=== PATIENT | female | born 1955 | race Caucasian/White ===

== ENCOUNTER → 2017-03-28 10:58 | Outpatient (CLI) | payer OTHER, SELFPAY | PROVIDERS: Family Provider Internal Medicine; PCP Internal Medicine | DX: R19.7 Diarrhea, unspecified (principal) | CPT/HCPCS: 87177; 87209; 87493; 87506 ==

== ENCOUNTER → 2017-07-03 10:09 | Outpatient (CLI) | payer OTHER, SELFPAY ==
[2017-07-03 12:10] LABS: Absolute Lymphocyte Count 1.77 X10^3/ul (0.83-4.51); Absolute Neutrophil Count 6.1 X10^3/uL (2.0-7.7); Basophil# 0.03 X10^3/uL; Basophil% 0.3 % (0-1); Differential Indicated SCAN CRITERIA MET; Eosinophil# 0.09 X10^3/uL; Hematocrit 34.8 % (37-47); Hemoglobin 9.6 g/dl (12.0-15.0); Lymphocyte # 1.77 X10^3/ul (4.0); Lymphocyte % 20.4 % (19-41); Mean Corp Hgb Conc 27.6 g/gl (32-36); Mean Corpuscular Hgb 19.1 pg (27.0-32.0); Mean Corpuscular Volume 69.2 fL (81-99); Mean Platelet Vol. 9.6 fl (6.2-12.0); Monocyte# 0.68 X10^3/uL; Monocyte% 7.8 % (0-10); Neutrophil # 6.08 X10^3/uL (2.7-7.7); Neutrophil % 70.2 % (47-70); POSITIVE COUNT NO; POSITIVE DIFFERENTIAL NO; POSITIVE MORPHOLOGY YES; Platelet Count 341 K/mm3 (150-450); RBC Distribution Width CV 19.5 % (11.6-14.6); RBC Distribution Width SD 48.2 fl (35.1-43.9); Red Blood Count 5.03 M/mm3 (4.2-5.4); White Blood Count 8.7 K/mm3 (4.4-11.0)
[2017-07-03 12:32] LABS: ALB/GLOB Ratio 0.8 RATIO (0.9-2.4); AST(SGOT) 17 U/L (15-37); Alanine Aminotransfer ALT/SGPT 14 U/L (13-56); Alkaline Phosphatase 111 U/L (45-117); Anion Gap 6 (5-15); BUN 12 mg/dL (7-18); BUN/Creat Ratio 19.5 RATIO (10-20); Calcium,Total 8.6 mg/dL (8.5-10.1); Chloride 104 mmol/L (98-107); Cholesterol 131 mg/dL (200); Creatinine, Serum 0.62 mg/dL (0.55-1.02); EST Glomerular Filtration Rate 104 mL/min (>60); Est Glom Filt Rate - Afr Amer 126 mL/min (>60); Ferritin 5 ng/mL (8-252); Glucose 83 mg/dL (74-106); High Density Lipoprotein 41 mg/dL; Iron 30 ug/dL (50-170); Potassium 3.8 mmol/L (3.5-5.1); Sodium Level 140 mmol/L (136-145); T4 Free Direct 1.03 ng/dL (0.76-1.46); Triglycerides 109 mg/dL; Very Low Density Lipoprotein 22 mg/dL (5-40)
[2017-07-03 12:54] LABS: Polychromasia 1+; Target Cells 1+
[2017-07-03 12:55] LABS: Hypochromasia RARE; Microcytosis 1+
[2017-07-04 08:41] LABS: Vitamin D,25 Hydroxy 11.1 ng/mL (29.95-100.01)
== END ==
PROVIDERS: Family Provider Family Medicine; PCP Family Medicine; Visit Provider Family Medicine
DX: E55.9 Vitamin D deficiency, unspecified (principal); D50.9 Iron deficiency anemia, unspecified; I10 Essential (primary) hypertension; F41.9 Anxiety disorder, unspecified
CPT/HCPCS: 36415; 80053; 80061; 82306; 82728; 83540; 84439; 84443; 85025

== ENCOUNTER → 2019-12-01 | Outpatient (CLI) | payer MEDICARE, SELFPAY ==
[2019-12-01 16:54] LABS: Absolute Lymphocyte Count 1.97 X10^3/uL (0.83-4.51); Basophil# 0.03 X10^3/uL; Basophil% 0.4 % (0-1); Eosinophil# 0.12 X10^3/uL; Eosinophils% 1.6 % (0-5); Hematocrit 36.9 % (37-47); Hemoglobin 9.7 g/dL (12.0-15.0); Lymphocyte # 1.97 X10^3/ul (4.0); Lymphocyte % 25.7 % (19-41); Mean Corp Hgb Conc 26.3 g/dL (32-36); Mean Corpuscular Hgb 18.9 pg (27.0-32.0); Mean Corpuscular Volume 71.9 fL (81-99); Mean Platelet Vol. 8.6 fl (6.2-12.0); Monocyte% 6.5 % (0-10); NRBC Flagged by Analyzer 0 % (0-5); Neutrophil # 5.02 X10^3/uL (2.7-7.7); Neutrophil % 65.3 % (47-70); Platelet Count 284 K/mm3 (150-450); RBC Distribution Width SD 46.1 fl (35.1-43.9); Red Blood Count 5.13 M/mm3 (4.2-5.4); White Blood Count 7.7 K/mm3 (4.4-11.0)
[2019-12-01 16:55] LABS: Vitamin B12 253 pg/mL (211-911); Vitamin D,25 Hydroxy 17.8 ng/mL
[2019-12-01 17:00] LABS: Albumin, Serum 3.2 g/dL (3.2-5.0); BUN 13 mg/dL (7-18); BUN/Creat Ratio 19.5 RATIO (10-20); Creatinine, Serum 0.66 mg/dL (0.55-1.02); EST Glomerular Filtration Rate 94 mL/min (>60); Est Glom Filt Rate - Afr Amer 114 mL/min (>60); Glucose 89 mg/dL (74-106); Protein, Total 7.2 g/dL (6.4-8.2)
[2019-12-01 17:01] LABS: ALB/GLOB Ratio 0.8 RATIO (0.9-2.4); AST(SGOT) 19 U/L (15-37); Alanine Aminotransfer ALT/SGPT 22 U/L (13-56); Alkaline Phosphatase 144 U/L (45-117); Anion Gap 2 (5-15); Calcium,Total 8.5 mg/dL (8.5-10.1); Chloride 106 mmol/L (98-107); Ferritin 5 ng/mL (8-252); Iron 29 ug/dL (50-170); Potassium 3.7 mmol/L (3.5-5.1); Sodium Level 141 mmol/L (136-145); Thyroid Stim Hormone (TSH) 2.16 uIU/mL (0.358-3.74)
== END | disposition home or self-care (01) ==
LOC: BFHLAB 15:23
PROVIDERS: PCP Family Medicine; Visit Provider Family Medicine
DX: E55.9 Vitamin D deficiency, unspecified (principal); D50.9 Iron deficiency anemia, unspecified; R60.9 Edema, unspecified
CPT/HCPCS: 36415; 80053; 82306; 82607; 82728; 83540; 84443; 85025

== ENCOUNTER → 2020-08-11 17:35 | Outpatient (CLI) | payer MEDICARE, SELFPAY | PROVIDERS: PCP Family Medicine; Visit Provider Family Medicine | DX: N39.0 Urinary tract infection, site not specified (principal) | CPT/HCPCS: 87077; 87086; 87088; 87186 ==

== ENCOUNTER → 2022-10-30 | Outpatient (CLI) | payer MEDICARE, SELFPAY ==
[2022-10-30 12:25] LABS: Absolute Neutrophil Count 4.4 X10^3/uL (2.0-7.7); Basophil# 0.04 X10^3/uL; Basophil% 0.6 % (0-1); Eosinophil# 0.17 X10^3/uL; Eosinophils% 2.4 % (0-5); Hematocrit 40.3 % (37-47); Hemoglobin 11.9 g/dL (12.0-15.0); Mean Corp Hgb Conc 29.5 g/dL (32-36); Mean Corpuscular Hgb 24.2 pg (27.0-32.0); Mean Corpuscular Volume 81.9 fL (81-99); Mean Platelet Vol. 9.2 fl (6.2-12.0); Monocyte# 0.53 X10^3/uL; Monocyte% 7.5 % (0-10); NRBC Flagged by Analyzer 0 % (0-5); Neutrophil # 4.37 X10^3/uL (2.7-7.7); Neutrophil % 62.1 % (47-70); Platelet Count 250 K/mm3 (150-450); RBC Distribution Width CV 14.4 % (11.6-14.6); RBC Distribution Width SD 42.7 fl (35.1-43.9); Red Blood Count 4.92 M/mm3 (4.2-5.4)
[2022-10-30 12:46] LABS: Vitamin B12 175 pg/mL (211-911); Vitamin D,25 Hydroxy 10.1 ng/mL
[2022-10-30 12:59] LABS: ALB/GLOB Ratio 0.8 RATIO (0.9-2.4); AST(SGOT) 26 U/L (15-37); Alanine Aminotransfer ALT/SGPT 25 U/L (13-56); Alkaline Phosphatase 142 U/L (45-117); Anion Gap 5 (5-15); BUN 17 mg/dL (7-18); Calcium,Total 8.6 mg/dL (8.5-10.1); Chloride 106 mmol/L (98-107); Cholesterol 168 mg/dL (200); Creatinine, Serum 0.68 mg/dL (0.55-1.02); EST Glomerular Filtration Rate 91 mL/min (>60); Est Glom Filt Rate - Afr Amer 110 mL/min (>60); Ferritin 8 ng/mL (8-252); Glucose 105 mg/dL (74-106); High Density Lipoprotein 47 mg/dL; Iron 42 ug/dL (50-170); Potassium 3.9 mmol/L (3.5-5.1); Sodium Level 140 mmol/L (136-145); Triglycerides 90 mg/dL; Very Low Density Lipoprotein 18 mg/dL (5-40)
== END | disposition home or self-care (01) ==
PROVIDERS: PCP Nurse Practitioner Family; Referring Provider Nurse Practitioner Family; Visit Provider Nurse Practitioner Family
DX: E55.9 Vitamin D deficiency, unspecified (principal); I10 Essential (primary) hypertension; D50.9 Iron deficiency anemia, unspecified; E53.8 Deficiency of other specified B group vitamins; E78.5 Hyperlipidemia, unspecified
CPT/HCPCS: 36415; 80053; 80061; 82306; 82607; 82728; 83540; 85025

== ENCOUNTER → 2022-11-13 | Outpatient (CLI) | payer MEDICARE, SELFPAY ==
--- NOTE | 2022-11-13 09:40 | BI_ITS ---
MAMMOGRAPHY - BILATERAL SCREENING REASON FOR EXAM: Female, 67 years old. Routine annual screening examination. PERTINENT HISTORY: Grandmother with breast cancer. Aunts with breast cancer. TECHNIQUE: Digital bilateral breast stephanie (3D mammographic acquisition) in the CC and MLO projections. 2-D mediolateral oblique (MLO) and craniocaudad (CC) views of both breasts were obtained. CAD: Full Field Digital Mammography with Computer Added Detection was performed. COMPARISON: Comparison is made with prior study dated February 06, 2012. FINDINGS: Breast Composition: There are scattered areas of fibroglandular density. There are no dominant masses or suspicious calcifications. Stable benign-appearing bilateral axillary lymph nodes. No other significant abnormalities are identified. There has been no significant change since the prior study. BI/SCRN MAMM (CAD)W/STEPHANIE BILAT IMPRESSION: Stable bilateral screening mammogram. Yearly follow-up mammogram recommended. (A) ASSESSMENT CATEGORY: BIRADS Category 2: Benign. A letter regarding these results will be sent to the patient by the facility within 30 days. Approximately 10% of breast cancers are not detected by mammography. A normal mammogram should not delay biopsy of a clinically suspicious abnormality. [id number] Electronically Signed: Tha Loya MD at 11:09 EDT ,
== END | disposition home or self-care (01) ==
LOC: OPBI 09:38
PROVIDERS: PCP Nurse Practitioner Family; Referring Provider Nurse Practitioner Family; Visit Provider Nurse Practitioner Family
DX: Z12.31 Encounter for screening mammogram for malignant neoplasm of breast (principal); Z80.3 Family history of malignant neoplasm of breast
CPT/HCPCS: 77063; 77067

== ENCOUNTER → 2023-11-04 | Outpatient (CLI) | payer MEDICARE, SELFPAY ==
[2023-11-04 15:28] LABS: Absolute Lymphocyte Count 1.69 X10^3/uL (0.83-4.51); Absolute Neutrophil Count 4.3 X10^3/uL (2.0-7.7); Basophil# 0.05 X10^3/uL; Basophil% 0.7 % (0-1); Eosinophil# 0.19 X10^3/uL; Eosinophils% 2.8 % (0-5); Hemoglobin 13.3 g/dL (12.0-15.0); Lymphocyte # 1.69 X10^3/ul (0.83-4.51); Lymphocyte % 25.1 % (19-41); Mean Corp Hgb Conc 30.9 g/dL (32-36); Mean Corpuscular Hgb 26.8 pg (27.0-32.0); Mean Corpuscular Volume 86.5 fL (81-99); Mean Platelet Vol. 10.1 fl (6.2-12.0); Monocyte# 0.46 X10^3/uL; Monocyte% 6.8 % (0-10); NRBC Flagged by Analyzer 0 % (0-5); Neutrophil % 64.2 % (47-70); Platelet Count 244 K/mm3 (150-450); RBC Distribution Width CV 13.4 % (11.6-14.6); RBC Distribution Width SD 41.8 fl (35.1-43.9); Red Blood Count 4.97 M/mm3 (4.2-5.4); White Blood Count 6.7 K/mm3 (4.4-11.0)
[2023-11-04 15:48] LABS: ALB/GLOB Ratio 0.9 RATIO (0.9-2.4); AST(SGOT) 22 U/L (15-37); Alanine Aminotransfer ALT/SGPT 22 U/L (13-56); Albumin, Serum 3.1 g/dL (3.2-5.0); Alkaline Phosphatase 106 U/L (45-117); Anion Gap 7 (5-15); BUN 14 mg/dL (7-18); BUN/Creat Ratio 22.1 RATIO (10-20); Calcium,Total 9.1 mg/dL (8.5-10.1); Chloride 108 mmol/L (98-107); Cholesterol 165 mg/dL (200); Creatinine, Serum 0.63 mg/dL (0.55-1.02); EST Glomerular Filtration Rate 99 mL/min (>60); Est Glom Filt Rate - Afr Amer 119 mL/min (>60); Ferritin 49 ng/mL (8-252); Globulin 3.5 g/dL (2.2-4.2); Glucose 99 mg/dL (74-106); High Density Lipoprotein 57 mg/dL; Iron 62 ug/dL (50-170); Protein, Total 6.6 g/dL (6.4-8.2); Sodium Level 143 mmol/L (136-145); Triglycerides 108 mg/dL; Very Low Density Lipoprotein 22 mg/dL (5-40)
[2023-11-04 15:50] LABS: Vitamin D,25 Hydroxy 30.5 ng/mL
== END | disposition home or self-care (01) ==
LOC: BFHLAB 11:04
PROVIDERS: PCP Nurse Practitioner Family; Referring Provider Nurse Practitioner Family; Visit Provider Nurse Practitioner Family
DX: E55.9 Vitamin D deficiency, unspecified (principal); D50.9 Iron deficiency anemia, unspecified; I10 Essential (primary) hypertension; E78.5 Hyperlipidemia, unspecified
CPT/HCPCS: 36415; 80053; 80061; 82306; 82728; 83540; 85025

== ENCOUNTER → 2023-11-25 | Outpatient (CLI) | payer MEDICARE, SELFPAY ==
--- NOTE | 2023-11-25 15:34 | BI_ITS ---
MAMMOGRAPHY - BILATERAL SCREENING REASON FOR EXAM: Female, 68 years old. Routine annual screening examination. PERTINENT HISTORY: Grandmother with breast cancer. Aunts with breast cancer. TECHNIQUE: Digital bilateral breast stephanie (3D mammographic acquisition) in the CC and MLO projections. 2-D mediolateral oblique (MLO) and craniocaudad (CC) views of both breasts were obtained. CAD: Full Field Digital Mammography with Computer Added Detection was performed. COMPARISON: Comparison is made with prior study November 13, 2022 and February 06, 2012. FINDINGS: Breast Composition: The breasts are almost entirely fatty. There are no dominant masses or suspicious calcifications. Stable small benign-appearing axillary lymph nodes. No other significant abnormalities are identified. There has been no significant change since the prior study. BI/SCRN MAMM (CAD)W/STEPHANIE BILAT IMPRESSION: Stable bilateral screening mammogram. Yearly follow-up mammogram recommended. (A) ASSESSMENT CATEGORY: BIRADS Category 2: Benign. A letter regarding these results will be sent to the patient by the facility within 30 days. Approximately 10% of breast cancers are not detected by mammography. A normal mammogram should not delay biopsy of a clinically suspicious abnormality. [id number] Electronically Signed: Tha Loya MD at 8:16 EDT ,
--- NOTE | 2023-11-25 15:36 | BD_ITS ---
STUDY: DUAL ENERGY X-RAY ABSORPTIOMETRY / DXA REASON FOR EXAM: Female, 68 years old. [id number] TECHNIQUE: Bone Mineral Density (BMD) measurements of lumbar spine and bilateral hips were obtained. COMPARISON: None. FINDINGS: Lumbar Spine (L1-L4): g/cm2 (1.4-3) / T-score (3.4) / Z-score (5.5) Findings are suggestive of normal bone density with a low fracture risk. Left Femur Total: g/cm2 (1.069) / T-score (1.0) / Z-score (2.6) Left Femoral Neck: g/cm2 (0.808) / T-score (-0.4) / Z-score (1.4) Right Femur Total: g/cm2 (0.962) / T-score (0.2) / Z-score (1.7) Right Femoral Neck: g/cm2 (0.747) / T-score (-0.9) / Z-score (0.9) BD/Dexa Bone Density Study IMPRESSION: The patient is considered normal as outlined below according to World Hung Organization (WHO) criteria with a low fracture risk. Reference Information: The T-score is the number of standard deviations above or below the standard which is normal for young adults at their peak bone mineral density. The World Health Organization (WHO) interprets the T-scores as follows: Above -1 Normal bone density Between -1 and -2.5 Osteopenia Equal to / or below -2.5 Osteoporosis As a practical clinical guideline, osteopenia may be graded as follows: Mild -1 through -1.5 Moderate -1.6 through -2.0 Severe -2.1 through -2.4 The Z-score is the number of standard deviations above or below age-matched controls. A Z-score of less than -1.5 would be considered abnormal. References: 1. NIH Osteoporosis and Related Bone Diseases www osteo.org 2. International Society for Clinical Densitometry www iscd.org 3. National Osteoporosis Foundation www nof.org Electronically Signed: Tha Loya MD at 14:30 EDT ,
== END | disposition home or self-care (01) ==
LOC: OPBD 15:32
PROVIDERS: PCP Nurse Practitioner Family; Referring Provider Nurse Practitioner Family; Visit Provider Nurse Practitioner Family
DX: Z12.31 Encounter for screening mammogram for malignant neoplasm of breast (principal); Z13.820 Encounter for screening for osteoporosis; Z80.3 Family history of malignant neoplasm of breast; Z78.0 Asymptomatic menopausal state
CPT/HCPCS: 77063; 77067; 77080

== ENCOUNTER → 2024-05-12 | Outpatient (CLI) | payer MEDICARE, SELFPAY | END | disposition home or self-care (01) | LOC: LABSPEC 16:12 | PROVIDERS: PCP Nurse Practitioner Family; Visit Provider Nurse Practitioner Family | DX: N39.0 Urinary tract infection, site not specified (principal) | CPT/HCPCS: 87086; 87088; 87186 ==

== ENCOUNTER → 2024-06-23 | Outpatient (CLI) | payer MEDICARE, SELFPAY | END | disposition home or self-care (01) | LOC: LABSPEC 12:25 | PROVIDERS: PCP Nurse Practitioner Family; Referring Provider Nurse Practitioner Family; Visit Provider Nurse Practitioner Family | DX: N39.0 Urinary tract infection, site not specified (principal) | CPT/HCPCS: 87086; 87088; 87186 ==

== ENCOUNTER → 2024-07-23 | Outpatient (CLI) | payer MEDICARE, SELFPAY ==
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
== END | disposition home or self-care (01) ==
LOC: MTRAD 16:25
PROVIDERS: PCP Nurse Practitioner Family; Referring Provider Nurse Practitioner Family; Visit Provider Nurse Practitioner Family
DX: M25.532 Pain in left wrist (principal)
CPT/HCPCS: 73110

== ENCOUNTER → 2024-11-25 | Outpatient (CLI) | payer MEDICARE, SELFPAY ==
--- NOTE | 2024-11-25 15:08 | BI_ITS ---
EXAM: SCRN MAMM (CAD)W/STEPHANIE BILAT DATE: 11/25/2024 CLINICAL HISTORY: F, Age 69 y/o , SCREENING TECHNIQUE: Procedure Code: [id number] Modality: MG Procedure: SCRN MAMM (CAD)W/STEPHANIE BILAT COMPARISON: Prior exam(s) were compared FINDINGS: TISSUE DENSITY: There are scattered areas of fibroglandular density. Bilateral Breast Mammographic Findings: No suspicious masses, calcifications or other abnormalities are identified. BI/SCRN MAMM (CAD)W/STEPHANIE BILAT IMPRESSION: No mammographic evidence of malignancy in either breast. OVERALL FINAL ASSESSMENT BI-RADS 1: NEGATIVE. RECOMMENDATION: Routine annual follow-up in 1 Year Additional Recommendation none A letter with findings and recommendations will be mailed to the patient. Reading Location: [id number]
== END | disposition home or self-care (01) ==
PROVIDERS: PCP Nurse Practitioner Family; Referring Provider Nurse Practitioner Family; Visit Provider Nurse Practitioner Family
DX: Z12.31 Encounter for screening mammogram for malignant neoplasm of breast (principal)
CPT/HCPCS: 77063; 77067

== ENCOUNTER 2025-01-14 19:16 | Emergency (ER) | payer MEDICARE, SELFPAY ==
[2025-01-14 19:17] VITALS: BP 167/72; PULSE 77; RESP 16; TEMP 36.3; O2SAT 100; BMI 34.3
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
--- OUTSIDE RECORDS SUMMARY | 2025-01-14 20:09 | XMS RPT_ITS | CCD ---
Author Organization [facility] Care Team Providers Care Dock Attendant Name Role Phone SAMY JUAQUIN E Attending Unavailable SAMY, JUAQUIN E Primary Care Unavailable SAMY, JUAQUIN E Admitting Unavailable SAMY, JUAQUIN E Attending Unavailable SAMY, JUAQUIN E Primary Care Unavailable SAMY, JUAQUIN E Admitting Unavailable Pedro COGENERATION OPERATOR-C, Celi Primary Care Provider Pedro COGENERATION OPERATOR-C, Celi Attending Provider [phone] Pedro COGENERATION OPERATOR-C, Celi Referring Provider Pedro COGENERATION OPERATOR-C, Celi Primary Care Physician Pedro COGENERATION OPERATOR-C, Celi Attending Physician Pedro COGENERATION OPERATOR-C, Celi Referring Provider Pedro, Celi Referring Unavailable Pedro, Celi Attending Unavailable Pedro, Celi Primary Care Unavailable Pedro, Celi Attending Unavailable Pedro, Celi Primary Care Unavailable Pedro, Celi Referring Unavailable Pedro, Celi Attending Unavailable Pedro, Celi Primary Care Unavailable Pedro, Celi Referring Unavailable Pedro, Celi Attending Unavailable Pedro, Celi Primary Care Unavailable Allergies Allergy Classification Reported Allergen(s) Allergy Type Date of Onset Reaction(s) Facility (5 sources) Aspirin Drug Allergy 4 Unknown [facility] (5 sources) Sulfonamides (Antibiotic) Allergy to substance 4 Unknown [facility] (1 source) Aspirin Drug Allergy 4 [facility] Repository (1 source) Sulfonamides (Antibiotic) Drug allergy (disorder) 4 [facility] Repository Medications Current Medications Medication Drug Class(es) Dates Sig (Normalized) Sig (Original) citalopram 20 mg oral tablet (5 sources) Serotonin Reuptake Inhibitor Start: 11-30-2013 take 1 tablet by mouth once daily furosemide 20 mg oral tablet (5 sources) Loop Diuretic Start: 11-30-2013 take 1 tablet by mouth once daily gabapentin 600 mg oral tablet (5 sources) Anti-epileptic Agent Start: 11-30-2013 take 1 tablet by mouth at bedtime hydroCHLOROthiazide 12.5 mg / olmesartan medoxomil 20 mg oral tablet (5 sources) Thiazide Diuretic, Angiotensin 2 Receptor Pauline Start: 11-30-2013 take 1 tablet by mouth once daily levoFLOXacin 750 mg oral tablet (5 sources) Quinolone Antimicrobial Start: 12-03-2013 take 1 tablet by mouth once daily Oxygen, Home (Home Oxygen) (5 sources) Start: 12-03-2013 Start: 12-03-2013 Oxygen, Home ( Home Oxygen) Active 2 LPM NASAL Continuous 1 December 03, 2013 12:00am pramipexole dihydrochloride 0.5 mg oral tablet (5 sources) Nonergot Dopamine Agonist Start: 11-30-2013 take 2 tablets by mouth at bedtime Start: 11-30-2013 take 1 mg by mouth at bedtime Pramipexole Active 1 MG PO AT BEDTIME November 30, 2013 12:00am Problems Active Problems Problem Classification Problem Date Documented Da te Episodic/Chronic Essential hypertension (5 sources) Hypertensive disorder; Translations: [Essential (primary) hypertension] 11-30-2013 Chronic Headache; including migraine (5 sources) Migraine; Translations: [Migraine, unspecified, not intractable, without status migrainosus] 11-30-2013 Chronic Other hereditary and degenerative nervous system conditions (5 sources) Restless legs; Translations: [Restless legs syndrome] 11-30-2013 Chronic Other nutritional; endocrine; and metabolic disorders (5 sources) Obesity; Translations: [Obesity, unspecified] 11-30-2013 Chronic Other screening for suspected conditions (not mental disorders or infectious disease) (1 source) Encounter for screening mammogram for malignant neoplasm of breast; Translations: [Encounter for screening mammogram for malignant neoplasm of breast] Onset: 12-07-2024 Episodic Past or Other Problems Problem Classification Problem Date Documented Da te Episodic/Chronic Other non-traumatic joint disorders (1 source) Pain in left wrist; Translations: [Pain in left wrist] Onset: 08-16-2024 Episodic Urinary tract infections (1 source) Urinary tract infection, site not specified; Translations: [Urinary tract infection, site not specified] Onset: 06-28-2024 Episodic Results Test Name Value Interpretation Reference Range Facility Breast imaging reportOrdered By: Luisa Houser on 11-25-2024 Study report [facility] Imaging Services [address] [place], [place] [id number] SCRN MAMM (CAD)W/STEPHANIE BILAT MR#: [id number] Acct: [id number] Name: GERA ZAMARRIPA Rep #: [id number] : 1955 F 69 From: Michael Ro MD PCP: TEJAL Issa Status: REG CLI Study:SCRN MAMM (CAD)W/STEPHANIE BILAT Date of Exa m: 11/25/24 Exam# [id number] Ordering Dr: Ra digna Vasquez EXAM: SCRN MAMM (CAD)W/STEPHANIE BILAT DATE: 11/25/2024 CLINICAL HISTORY: F, Age 69 y/o , SCREENING TECHNIQUE: Procedure Code: BISMWCADBTOM Modality: MG Procedure: SCRN MAMM (CAD)W/STEPHANIE BILAT COMPARISON: Prior exam(s) were compared FINDINGS: TISSUE DENSITY: There are scattered areas of fibroglandular density. Bilateral Breast Mammographic Findings: No suspicious masses, calcifications or other abnormalities are identified. BI/SCRN MAMM (CAD)W/STEPHANIE BILAT IMPRESSION: No mammographic evidence of malignancy in either breast. OVERALL FINAL ASSESSMENT BI-RADS 1: NEGATIVE. RECOMMENDATION: Routine annual follow-up in 1 Year Additional Recommendation none A letter with findings and recommendations will be mailed to the patient. Reading Location: [id number] CC: TEJAL Vasquez ~ Disassembler Product: Signed [facility] SCRN MAMM (CAD)W/STEPHANIE BILATo n 11-25-2024 SCRN MAMM (CAD)W/STEPHANIE BILAT [facility] Imaging Services [address] [place], [place] [id number] SCRN MAMM (CAD)W/STEPHANIE BILAT MR#: [id number] Acct: [id number] Name: GERA ZAMARRIPA Rep #: [id number] : 1955 F 69 From: Luisa Alvarez i, MD PCP: TEJAL Issa Status: REG CLI Study: SCRN MAMM (CAD)W/STEPHANIE BILAT Date of Exam: 11/02 07/25 Exam# [id number] Ordering Dr: Celi Vasquez COGENERATION OPERATORNaila EXAM: SCRN MAMM (CAD)W/STEPHANIE BILAT DATE: 11/25/2024 CLINICAL HISTORY: F, Age 69 y/o , SCREENING TECHNIQUE: Procedure Code: BISMWCADBTOM Modality: MG Procedure: SCRN MAMM (CAD)W/STEPHANIE BILAT COMPARISON: Prior exam(s) were compared FINDINGS: TISSUE DENSITY: There are scattered areas of fibroglandular density. Bilateral Breast Mammographic Findings: No suspicious masses, calcifications or other abnormalities are identified. BI/SCRN MAMM (CAD)W/STEPHANIE BILAT IMPRESSION: No mammographic evidence of malignancy in either breast. OVERALL FINAL ASSESSMENT BI-RADS 1: NEGATIVE. RECOMMENDATION: Routine annual follow-up in 1 Year Additional Recommendation none A letter with findings and recommendations will be mailed to the patient. Reading Location: [facility] CC: COGENERATION OPERATOR-C Celi Vasquez Disassembler Product: Signed Normal [facility] Wrist min 3 Viewson 07-24-19 Wrist min 3 Views [facility] Imaging Services [address] [place] [id number] Wrist min 3 Views MR#: [id number] Acct: [id number] Name: GERA ZAMARRIPA Rep #: [id number] : 1955 F 69 From: Kamaljit Santos MD PCP: TEJAL Issa Status: REG CLI Study: Wrist min 3 Views Date of Exam: 07/23/24 Exam# [id number] Ordering Dr: Celi Vasquez PROCEDURE: WRIST MIN 3 VIEWS 07/23/2024 REASON FOR EXAM: PAIN IN WRIST TECHNIQUE: 3 view(s) of the left wrist COMPARISON: None available FINDINGS: No fracture or dislocation identified. 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 Proximal joint space narrowing suggested at the radiocarpal joint. RAD/Wrist min 3 Views IMPRESSION: No fracture or dislocation identified. Polyarticular osteoarthrosis as above. Reading Location: [id number] CC: TEJAL Vasquez Disassembler Product: Signed Normal [facility] Urine Cultureon 06-25-2024 [facility] CULTURE SENSITIVITY PER ORDER Presumptive E. coli [place] Count >100,000 Presumptive E. coli: REACTION Ampicillin Islt NORM 16 Ampicillin+Sulbac Islt NORM <=2 S Cefepime Islt NORM <=0.12 S cefTRIAXone Islt NORM <=0.25 S Ciprofloxacin Islt NORM <=0.06 S B-Lactamase Extended Susc Islt NEG Gentamicin Islt NORM <=1 S levoFLOXacin Islt NORM <=0.12 S Meropenem Islt NORM <=0.25 S Nitrofurantoin Islt NORM <=16 S Pip+Tazo Islt NORM <=4 S TMP SMX Islt NORM <=20 S Normal [facility] Comment on above: Performed By: #### M [id number] #### [facility] [address] [place], [address] Urine cultureOrdered By: Sumeet Vasquez on 06-23-2024 Bacteria identified Cx Nom (U) Presumptive E. coli Abnormal [facility] Urine Cultureon 05-14-2024 [facility] Presumptive E. coli [place] Count >100,000 Presumptive E. coli: REACTION Ampicillin Islt NORM 16 Ampicillin+Sulbac Islt NORM 4 S Cefepime Islt NORM <=0.12 S cefTRIAXone Islt NORM <=0.25 S Ciprofloxacin Islt NORM <=0.06 S B-Lactamase Extended Susc Islt NEG Gentamicin Islt NORM <=1 S levoFLOXacin Islt NORM <=0.12 S Meropenem Islt NORM <=0.25 S Nitrofurantoin Islt NORM 32 S Pip+Tazo Islt NORM <=4 S TMP SMX Islt NORM <=20 S Normal [facility] Comment on above: Performed By: #### M [id number] #### [facility] [address] [place], [address] Urine cultureOrdered By: Sumeet Vasquez on 05-12-2024 Bacteria identified Cx Nom (U) Presumptive E. coli Abnormal [facility] Absolute lymphocyte countOrd ered By: Celi Vasquez on 10-30-2022 Lymphocytes Auto (Unsp spec) [#/Vol] 1.90 10*3/uL 0.83-4.51 [facility] Basophil percentageOrdered B y: Celi Walkergar on 10-30-2022 Basophils/100 WBC (Bld) 0.6 % 0-1 [facility] Bilirubin [Mass/Vol] 0.20 mg/dL 0.20-1.00 [facility] Comment on above: For patients on eltr ombopag therapy, use of Dimension [place] TBIL is not recommended. Chloride [Moles/Vol] 106 mmol/L 98-107 [facility] Cholesterol [Mass/Vol] 168 mg/dL <200 [facility] Comment on above: <200 mg/dL Desirable 200-240 mg/dL Borderline >240 mg/dL High Risk Eosinophils/100 WBC (Bld) 2.4 % 0-5 [facility] Glucose [Mass/Vol] 105 mg/dL 74-106 [facility] Comment on above: Fasting Glucose resu lt from 100 to 125 mg/dL suggests IMPAIRED HOMEOSTASIS per A.D.A. criteria. Neutrophils (Bld) [#/Vol] 4.4 10*3/uL 2.0-7.7 [facility] Neutrophils/100 WBC (Bld) 62.1 % 47-70 [facility] Potassium [Moles/Vol] 3.9 mmol/L 3.5-5.1 [place] Protein [Mass/Vol] 7.0 g/dL 6.4-8.2 [facility] Sodium [Moles/Vol] 140 mmol/L 136-145 [facility] Triglyceride [Mass/Vol] 90 mg/dL <199 [facility] Comment on above: The drugs N-Acetylcy steine and Metamizole may falsely depress this assay.Serum Triglycerides Reference Interval Normal <150 mg/dL Borderline high 150 - 199 mg/dL High 200 - 499 mg/dL Very High > or = 500 mg/dL WBC (Bld) [#/Vol] 7.0 10*3/uL 4.4-11.0 [facility] Blood erythrocytes count (nu mber/volume)Ordered By: Celi Vasquez on 10-30-2022 RBC (Bld) [#/Vol] 4.92 10*6/uL 4.2-5.4 [facility] Blood hemoglobin measurement (mass/volume)Ordered By: Celi Vasquez on 10-30-2022 Hemoglobin (Bld) [Mass/Vol] 11.9 g/dL 12.0-15.0 [facility] Blood lymphocytes/100 leukoc ytesOrdered By: Celisujey Vasquez on 10-30-2022 Lymphocytes/100 WBC (Bld) 27.0 % 19-41 [facility] Blood monocytes/100 leukocyt esOrdered By: Celisujey Vasquez on 10-30-2022 Monocytes/100 WBC (Bld) 7.5 % 0-10 [facility] Blood platelet mean volumeOr dered By: Celi Vasquez on 10-30-2022 Platelet mean volume (Bld) [Entitic vol] 9.2 fL 6.2-12.0 [facility] Determination of erythrocyte mean corpuscular volume (MCV)Ordered By: Celi Vasquez on 10-30-2022 MCV (RBC) [Entitic vol] 81.9 fL 81-99 [facility] Hematocrit Auto (Bld) [Volum e fraction]Ordered By: Celi Vasquez on 10-30-2022 Hematocrit (Bld) [Volume fraction] 40.3 % 37-47 [facility] Iron measurement (mass/mass) Ordered By: Celi Vasquez on 10-30-2022 Iron (Unsp spec) [Mass/Mass] 42 ug/dL 50-170 [facility] Laboratory - Chemistry and C hemistry - challengeOrdered By: Celisujey Vasquez on 10-30-2022 ALP [Catalytic activity/Vol] 142 U/L 45-117 [facility] ALT [Catalytic activity/Vol] 25 U/L 13-56 [facility] CO2 [Moles/Vol] 29.0 mmol/L 21.0-32.0 [facility] Cobalamin (Vitamin B12) [Mass/Vol] 175 pg/mL 211-911 [facility] Globulin (S) [Mass/Vol] 4.0 g/dL 2.2-4.2 [facility] Urea nitrogen/Creatinine [Mass ratio] 25.0 mg/mg 10-20 [facility] - Hematology and Cell countsOrdered By: Celi Vasquez on 10-30-2022 Erythrocyte distribution width (RBC) [Entitic vol] 42.7 fL 35.1-43.9 [facility] Erythrocyte distribution width (RBC) [Ratio] 14.4 % 11.6-14.6 [facility] Immature granulocytes/100 WBC (Bld) 0.400 % 0.0-0.9 [facility] Comment on above: IG% - Immature Granu locytes (promyelocytes, myelocytes and metamyelocytes) > 1% indicates that a LEFT SHIFT is Present. MCH (RBC) [Entitic mass] 24.2 pg 27.0-32.0 [facility] Nucleated RBC/100 WBC (Bld) [Ratio] 0 % 0-5 [facility] MCHC Auto (RBC) [Mass/Vol]Or dered By: Celi Vasquez on 10-30-2022 MCHC (RBC) [Mass/Vol] 29.5 g/dL 32-36 [place] No Panel InformationOrdered By: Celi Vasquez on 10-30-2022 Estimated GFR (MDRD) Amer 110 mL/min >60 [facility] Comment on above: GFR Calc Estimated GFR (MDRD) Non-Af Amer 91 mL/min >60 [facility] Comment on above: Non- GFR Calc Vitamin D 25-Hydroxy 10.1 ng/mL [facility] Comment on above: Vitamin D 25(OH) Sta tus Range Deficiency <20 ng/mL (50nmol/L) Insufficiency 20 - 30 ng/mL (50 - 75 nmol/L) Sufficiency 30 - 100 ng/mL (75 - 250 nmol/L) Toxicity >100 ng/mL (>250 nmol/L) Platelets bldOrdered By: Sumeet Vasquez on 10-30-2022 Platelets (Bld) [#/Vol] 250 10*3/uL 150-450 [facility] Serum or plasma albumin bipin urement (mass/volume)Ordered By: Celi Vasquez on 10-30-2022 Albumin [Mass/Vol] 3.0 g/dL 3.2-5.0 [facility] Serum or plasma albumin/glob ulin mass ratioOrdered By: Celi Vasquez on 10-30-2022 Albumin/Globulin [Mass ratio] 0.8 {ratio} 0.9-2.4 [facility] Serum or plasma calcium bipin urement (mass/volume)Ordered By: Celi Vasquez on 10-30-2022 Calcium [Mass/Vol] 8.6 mg/dL 8.5-10.1 [facility] Serum or plasma cholesterol in HDL measurement (mass/volume)Ordered By: Celi Vasquez on 10-30-2022 Cholesterol in HDL [Mass/Vol] 47 mg/dL >40 [facility] Comment on above: The drugs N-Acetylcy steine and Metamizole may falsely depress this assay. Reference Range HDL <40 mg/dL Low HDL Cholesterol HDL >or= 60 mg/dL High HDL Cholesterol Serum or plasma cholesterol in VLDL measurement (mass/volume)Ordered By: Celi Vasquez on 10-30-2022 Cholesterol in VLDL [Mass/Vol] 18 mg/dL 5-40 [facility] Serum or plasma creatinine m easurement (mass/volume)Ordered By: Celi Vasquez on 10-30-2022 Creatinine [Mass/Vol] 0.68 mg/dL 0.55-1.02 [place] Comment on above: The validity of the calculated GFR & GFRAA in patients over 70 years has not been determined. Clinical correlation is essential. Serum or plasma ferritin hermelinda surement (mass/volume)Ordered By: Celi Vasquez on 10-30-2022 Ferritin [Mass/Vol] 8 ng/mL 8-252 [facility] Serum or plasma low density lipoprotein (LDL) cholesterol measurement (mass/volume)Ordered By: Celi Vasquez on 10-30-2022 Cholesterol in LDL [Mass/Vol] 103 mg/dL 0-130 [facility] Serum or plasma urea nitroge n measurement (mass/volume)Ordered By: Celi Vasquez on 10-30-2022 Urea nitrogen [Mass/Vol] 17 mg/dL 7-18 [facility] Thin prep Papanicolaou smear with manual screeningOrdered By: Celi Pedro on 10-30-2022 Thin prep Papanicolaou smear with manual screening 26 U/L 15-37 [facility] Thin prep Papanicolaou smear with manual screening 5 5-15 [facility] Encounters Encounter Date Encounter Type Care Provider Facility Start: 11-25-2024 End: 11-25-2024 ambulatory Celi Pedro COGENERATION OPERATOR-C Work Phone: -Outpatient Breast Imaging Start: 11-25-2024 End: 11-25-2024 Patient encounter procedure Celi Pedro COGENERATION OPERATOR-C -Outpatient Breast Imaging Work Phone: Start: 11-25-2024 End: 11-25-2024 ambulatory Celi Walkergar Facility:[facility] Start: 07-23-2024 End: 07-23-2024 ambulatory Celi Vasquez COGENERATION OPERATOR-C Work Phone: [facility] Work Phone: Start: 07-23-2024 End: 07-23-2024 Patient encounter procedure Celi Vasquez COGENERATION OPERATOR-C -Radiology [place] Work Phone: Start: 07-23-2024 End: 07-23-2024 ambulatory Celi Walkergar Facility:[facility] Start: 06-23-2024 End: 06-23-2024 Patient encounter procedure Celi Vasquez COGENERATION OPERATOR-C -Laboratory Spec[facility] Work Phone: Start: 06-23-2024 End: 06-23-2024 ambulatory Celi Vasquez Facility:[facility] Start: 05-12-2024 End: 05-12-2024 ambulatory Celi Walkergar COGENERATION OPERATOR-C Work Phone: [facility] Work Phone: Start: 05-12-2024 End: 05-12-2024 Patient encounter procedure Celi Vasquez NP-C -Laboratory, Specimen Work Phone: Start: 05-12-2024 End: 05-12-2024 ambulatory Celi Vasquez Facility:[facility] Start: 11-13-2022 End: 11-13-2022 ambulatory [facility] Work Phone: Start: 11-13-2022 End: 11-13-2022 Patient encounter procedure [facility]-Outpatient Breast Imaging Work Phone: Start: 10-30-2022 End: 10-30-2022 ambulatory [facility] Work Phone: Start: 10-30-2022 End: 10-30-2022 Patient encounter procedure [facility]atory, [facility] [place] Start: 05-29-2020 End: 05-29-2020 Patient encounter procedure [facility] Start: 05-08-2020 End: 05-08-2020 Patient encounter procedure [facility] Procedures Date Procedure Procedure Detail Performing Clinician Start: 11-25-2024 Screening mammography R diomedes Vasquez COGENERATION OPERATOR-C Work Phone: Start: 07-23-2024 Plain x-ray of wrist Ra digna Vasquez COGENERATION OPERATOR-C Work Phone: Start: 06-23-2024 Urine culture Celi Walker gar COGENERATION OPERATOR-C Work Phone: Start: 05-12-2024 Urine culture Celi Wlaker gar COGENERATION OPERATOR-C Work Phone: Start: 11-13-2022 Screening mammography Immunizations Immunization Date Immunization Notes Care Provider Belkis higgins 12-03-2013 influenza, injectabl e, quadrivalent, preservative free [facility] 12-03-2013 influenza, seasonal, injectable [facility] Payers Date Payer Category Payer Private Health Insurance [id number] 2024 Self-pay [id number] Medicare [id number] Unknown [id number] Unknown Unknown [id number] Unknown [id number] [id number] Unknown [id number] [id number] [id number] Unknown [id number] [id number] [id number] Social History Date Type Detail Facility Start: 11-30-2013 Tobacco smoking status NHIS Unknown if ever smoked [facility] Start: 11-30-2013 None [facility] Start: 11-30-2013 Spouse/ Signif icant Other [facility] Start: 11-30-2013 Non-smoker [facility] Start: 1955 Sex Assigned At Female [facility] Start: 11-30-2013 Tobacco smoking status NHIS Never smoked tobacco (finding) [facility] Start: 05-21-2024 Sex Female (finding) [facility] Sex Female [facility] Radiology Diagnostic study note 07-24-2024 Note Date & Type Note Facility 07-24-2024 Radiology Diagnostic study note [facility] Imaging Services [address], [place] [id number] Wrist min 3 Views MR#: [id number] Acct: [id number] Name: GERA ZAMARRIPA Rep #: [id number] : 1955 F 69 From: Lucio Santos MD PCP: TEJAL Issa Status: REG CLI Study:Wrist min 3 Views Date of Exam: Exam# [id number] Ordering Dr: Ra digna Vasquez COGENERATION OPERATOR-Sasha PROCEDURE: WRIST MIN 3 VIEWS 07/23/2024 REASON FOR EXAM: PAIN IN WRIST TECHNIQUE: 3 view(s) of the left wrist COMPARISON: None available FINDINGS: No fracture or dislocation identified. 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 Proximal joint space narrowing suggested at the radiocarpal joint. RAD/Wrist min 3 Views IMPRESSION: No fracture or dislocation identified. Polyarticular osteoarthrosis as above. Reading Location: [id number] CC: COGENERATION OPERATOR-C Celi Vasquez ~ Disassembler Product: Signed [facility] Evaluation note Note Date & Type Note Facility Evaluation note No assessment information availa ble [facility] Work Phone: Reason for referral (narrative) Note Date & Type Note Facility Reason for referral (narrative) No reason for referral information available [facility] Work Phone: Summary Purpose Family History No Family History Records Found Relationship Condition Age at Onset Recorded Date/T brandan Unknown [facility] History?[facility] Family History?Unknown Unknown [facility] 2013 4:52pm Advance Directives No Advanced Directives Records Found Advance Directive Response Recorded Date/ Time Advance Directives No November 5:41pm Living Will No November 30, 2013 5:41pm Power of E Business Project Manager No November 5:41pm Advance Directive Response Recorded Date/ Time Advance Directives No November 5:41pm Chief Complaint and Reason for Visit Chief Complaint SCREENING Chief Complaint Admit Date LEFT WRIST PAIN July 23, 2024 4:23p m Chief Complaint Admit Date screening November 25, 2024 2:51pm Additional Source Comments INFORMATION SOURCE (unrecogn ized section and content) DATE CREATED AUTHOR 06/10/2020 [facility] DATE CREATED AUTHOR AUTHOR'S ORGANIZ ATION 12/10/2024 [facility] Care Teams (unrecognized sec tion and content) Team Status: Active Member Role Status Dates Dr. Aramis Fernandes MD Family Provider Active TEJAL Issa Primary Care Provider Active Team Status: Inactive Member Role Status Dates TEJAL Issa Primary Care Provide r, Attending Provider, Referring Provider Active Team Status: Inactive Member Role Status Dates TEJAL Issa Primary Care Provider Active Start: May 12, 2024 End: May 12, 2024 Celi Vasquez COGENERATION OPERATOR-C Attending Provider Active St art: May 12, 2024 End: May 12, 2024 Team Status: Inactive Member Role Status Dates Celi Vasquez COGENERATION OPERATOR-C Primary Care Provider Active Start: June 23, 2024 End: June 23, 2024 Celi Vasquez COGENERATION OPERATOR-C Attending Provider Active St art: June 23, 2024 End: June 23, 2024 Celi Vasquez COGENERATION OPERATOR-C Referring Provider Active St art: June 23, 2024 End: June 23, 2024 Team Status: Inactive Member Role Status Dates Celi Vasquez COGENERATION OPERATOR-C Primary Care Provider Active Start: July 23, 2024 End: July 23, 2024 Celi Vasquez COGENERATION OPERATOR-C Attending Provider Active St art: July 23, 2024 End: July 23, 2024 Celi Vasquez COGENERATION OPERATOR-C Referring Provider Active St art: July 23, 2024 End: July 23, 2024 Team Status: Active Member Role/Relationship Status Dates Celi Vasquez COGENERATION OPERATOR-C Primary care physician Active Team Status: Inactive Member Role/Relationship Status Dates Celi Vasquez COGENERATION OPERATOR-C Primary care physician Active Start: November 25, 2024 End: November 25, 2024 Celi Vasquez NP-C Attending physician Active S tart: November 25, 2024 End: November 25, 2024 Celi Vasquez COGENERATION OPERATOR-C Referring Provider Active St art: November 25, 2024 End: November 25, 2024 Goals (unrecognized section and content) Goals may be documented in a n alternate sectionGoals may be documented in an alternate sectionGoals may be documented in an alternate sectionGoals may be documented in an alternate sectionGoals may be documented in an alternate section FOR RECORDS PERTAINING TO PATIENTS WHO ARE OR HAVE BEEN ENROLLED IN A CHEMICAL DEPENDENCY/SUBSTANCEABUSE PROGRAM, SOME INFORMATION MAY BE OMITTED. This clinical summary was aggregated from multiple sources. Caution should be exercised in using it in the provision of clinical care. This summary normalizes information from multiple sources, and as a consequence, information in this document may materially change the coding, format and clinical context of patient data. In addition, data may be omitted in some cases. CLINICAL DECISIONS SHOULD BE BASED ON THE PRIMARY CLINICAL RECORDS. [facility] provides no warranty or guarantee of the accuracy or completeness of information in this document.
[2025-01-14 21:00] VITALS: BP 111/86; PULSE 74; RESP 16; O2SAT 98
[2025-01-14 22:25] VITALS: BP 158/79; PULSE 72; RESP 16; TEMP 36.3; O2SAT 100
== END 2025-01-14 22:27 | disposition home or self-care (01) ==
PROVIDERS: Emergency Provider Student in an Organized Health Care Education/Training Program; PCP Nurse Practitioner Family; Visit Provider Student in an Organized Health Care Education/Training Program
DX: S09.90XA Unspecified injury of head, initial encounter (principal); Y92.410 Unspecified street and highway as the place of occurrence of the external cause; V43.52XA Car driver injured in collision with other type car in traffic accident, initial encounter; Z90.49 Acquired absence of other specified parts of digestive tract; Z98.84 Bariatric surgery status
CPT/HCPCS: 70450; 72125; 99284